=== PATIENT | male | born 1955 | race Hispanic/Latino ===

== ENCOUNTER → 2017-10-13 | Outpatient (CLI) | payer BC | LOC: SLEEP 19:39 | PROVIDERS: ATTEND Family Medicine | DX: G47.30 Sleep apnea, unspecified (principal) | CPT/HCPCS: 95811 ==

== ENCOUNTER 2020-05-14 06:17 | Observation (INO) | payer BC, OTHER ==
[2020-05-11 12:55] LABS: BASOPHILS # (AUTO) 0.1 (0.0-0.1); BASOPHILS % 0.6 % (0.0-1.0); EOSINOPHILS # (AUTO) 0.1 (0.0-0.4); EOSINOPHILS % 1.4 % (0.0-6.0); HEMATOCRIT 39.7 % (38.2-49.6); LYMPHOCYTES # (AUTO) 2.4 (1.0-3.2); LYMPHOCYTES % 30.8 % (18.0-39.1); MEAN CORPUSCULAR HEMOGLOBIN 31.5 pg (28-32); MEAN CORPUSCULAR HGB CONC 35.3 g/dL (31-35); MEAN CORPUSCULAR VOLUME 89.2 fL (81-99); MONOCYTES # (AUTO) 0.6 (0.2-0.8); MONOCYTES % 7.1 % (4.4-11.3); NEUTROPHILS # (AUTO) 4.7 (2.1-6.9); NEUTROPHILS % 59.5 % (38.7-80.0); PLATELET COUNT 233 x10e3/uL (140-360); RED BLOOD COUNT 4.45 x10e6/uL (4.3-5.7); RED CELL DISTRIBUTION WIDTH 12.8 % (11.7-14.4)
[2020-05-11 13:14] LABS: INR 0.97; PROTHROMBIN TIME 13.4 seconds (11.9-14.5)
[2020-05-11 13:15] LABS: PARTIAL THROMBOPLASTIN TIME 29.2 seconds (23.8-35.5)
[2020-05-11 13:18] LABS: ALBUMIN 4.5 g/dL (3.5-5.0); ALBUMIN/GLOBULIN RATIO 1.6 (0.8-2.0); ANION GAP 15.5 mmol/L (8-16); CALCIUM 9.5 mg/dL (8.4-10.2); CREATININE, SERUM 1.25 mg/dL (0.72-1.25); POTASSIUM 3.5 mmol/L (3.5-5.1)
--- NOTE | 2020-05-13 14:40 | NUR ---
Pt contacted by phone for interview of scheduled procedure. Review of medical history and current medications. Procedural consent on day of arrival to be completed, pre-op orders, and twice bathing education completed. All questions clarified and or answered where appropriate. pt verbalizes understanding to include day of procedure expectations and practice social distancing. Pt aware to be using provided/ personal mask for COVID-19 mitigation. Pt to bring [place] list [place] [facility] [place]
[2020-05-14] VITALS (11 sets, daily range): BP systolic 112–133; BP diastolic 66–78
[~2020-05-14] VITALS: Ht 170.2 cm; Wt 79.4 kg
[2020-05-14] MEDS ORDERED: OLMESARTAN-HCT1 EAC2 PO (06:59)
[2020-05-14] MEDS ORDERED: AMLODIPINE BESYL5 MG PO (06:59)
[2020-05-14] MEDS ORDERED: ELIQUIS5 M1 PO (06:59)
[2020-05-14] MEDS ORDERED: FENOFIBRATE160 MG PO (06:59)
[2020-05-14] MEDS ORDERED: METOPROLOL SUCC25 MG PO (06:59)
[2020-05-14] MEDS ORDERED: VERAPAMIL HCL 2.5 MG/ML 2 ML VIAL ONE (07:27)
[2020-05-14] MEDS ORDERED: HEPARIN SOD (PORCINE) 1000 UNIT/ML 30ML ONE (07:27)
[2020-05-14] MEDS ORDERED: FENTANYL CITRATE/PF 100MCG/2 ML INJ ONE (07:28)
[2020-05-14] MEDS ORDERED: SODIUM CHLORIDE 0.9% 1000ML 1,000 ML ONE (07:28)
[2020-05-14] MEDS ORDERED: MIDAZOLAM HCL 2 MG/2 ML VIAL ONE (07:28)
[2020-05-14] MEDS ORDERED: IOPAMIDOL 370 MG/ML 200 ML INFUS..BTL INJ ONE (07:28)
[2020-05-14] MEDS ORDERED: LIDOCAINE HCL 2% LOCAL 20 ML VIAL ONE (07:28)
[2020-05-14] MEDS ORDERED: HEPARIN SOD/SOD CHLORIDE 2,000 ML ONE (07:28)
[2020-05-14] MEDS ORDERED: NITROGLYCERIN/D5W 200 MCG/ML 250 ML ONE (07:28)
--- NOTE | 2020-05-14 09:05 | NUR ---
0905A ELECTROMECHANISMS DESIGN DRAFTER RECIEVING NOTE: Procedure type: [facility] Rt Radial Dr Boyce Circ Fic admit telel obsv 115 pos TR band removal Received pt to rm #[id number] Identiferx2. Rport from Safia BILL.Ox4, Back to baseline orientation. Respiration shallow and regular on room air. V/S stable Monitor stable. No gross issues pain pallor pressure or dysrthmia. Son called to D=BSMorio recieved TR band teaching tool and diagram and stent card Dr Boyce spoke with pt and son.Pt back to baseline orientation. Extremeties equal and strong. Pedal pulses PT/DP X4 Cap fill brisk < 3 sec. Prooceedural access Right TR-band site D/I Skin warm and dry integrity appears D/I IV 20g to left hand, presents healthy w/o s/s of infiltration or complaint. Abdomen soft and supple. pt offered toileting, denies need to urinate or defecate. No personal affects with patient. Family remains at bedside. Pt and family verbalizes understanding of POC. telemetry pack ordered Currently w/o complaint of pain or need.Ptential dc/Disposition. ds/rn
[2020-05-14] MEDS ORDERED: CLOPIDOGREL BISULFATE 75 MG TAB ONE (09:09)
[2020-05-14] MEDS ORDERED: ASPIRIN 325 MG TAB ONE (09:10)
[2020-05-14] MEDS: ATORVASTATIN 40 MG TAB PO SCH (10:00)
--- NOTE | 2020-05-14 10:00 | NUR ---
1000a RADIAL Compression removal: Initial Cuff volume 13 cc 10am -3cc Removed No hematoma/bleeding noted with normal neurovascular function. 1015a -5 cc Removed No hematoma/ bleeding noted with normal neurovascular function. 1030cc -5Removed No hematoma/bleeding noted with normal neurovascular function. Air removal completed. Stasis achieved sterile 2x2,Tegaderm, Coban dressing No hematoma, bleeding noted with normal neurovascular function. Wrist splint in place. Pt instructed on POC. Ds/Rn
--- NOTE | 2020-05-14 10:30 | NUR ---
1030a Phoned report to Kurtis Silvestre. Rt Tr band off and secured NO gross issues pain,pallor,pressure or dysrhythmia.Back to baseline Orientation.Tolerated po intake Tele box on and transported via stretcher. Handoff complete with Rn at bedside.Bed brakes on and in low positon,call light at bedside.Reviewed diagram , stent card info with son and pt Son has copies Prescription left on chart for dc nurse to give to pt Pt does need f/o 2wks and needs to call for appt. eliana/kurtis
--- NOTE | 2020-05-14 11:54 | NUR ---
ASSUMED CARE. AAOX4. ACYANOTIC. PATIENT RESTING IN BED WITH HOB ELEVATED. LEFT HAND IV NOTED. IV PATENT AND SALINE LOCKED. PATIENT TOLERATING FLUIDS BY MOUTH. INSTRUCTED NOT TO PLACE PRESSURE TO RIGHT ARM/RIGHT HAND. VERBALIZED UNDERSTANDING. CALL LIGHT IN REACH. SIDE RAILS UP X2. BED LOW AND LOCKED.
--- NOTE | 2020-05-14 19:55 | NUR ---
BEDSIDE SHIFT REPORT RECEIVED FROM DAY RN. PT IS ALERT AND ORIENTED X3. RESPIRATIONS ARE EVEN AND UNLABORED . RT RADIAL PRESSURE DRESSING DRY AND INTACT. TELE ON. BOWEL SOUNDS PRESENT. NO PEDAL EDEMA NOTED. PT VOIDING WITHOUT DIFFICULTY. 20 G SL IN LEFT HAND. PT DENIES PAIN. CALL LIGHT WITHIN REACH. BED LOCKED AND IN LOW POSITION.
[2020-05-15] VITALS: BP 110/75
[2020-05-15 04:00] VITALS: BP 123/72
[2020-05-15] MEDS ORDERED: ATORVASTATIN CA20 MG PO (07:58)
[2020-05-15] MEDS ORDERED: PLAVIX75 MG PO (07:59)
[2020-05-15] MEDS ORDERED: ASPIRIN81 MG PO (07:59)
--- NOTE | 2020-05-15 08:01 | NUR ---
spoke with Dr. Boyce; orders and instructions received for patient's discharge and med reconciliation.
[2020-05-15 08:19] VITALS: BP 123/72
[2020-05-15 08:26] VITALS: BP 138/72
[2020-05-15] MEDS ORDERED: ASPIRIN 81 MG CHEW TAB PO SCH (09:00)
[2020-05-15] MEDS ORDERED: METOPROLOL SUCCINATE 25 MG TAB XL PO SCH (09:00)
[2020-05-15] MEDS ORDERED: CLOPIDOGREL BISULFATE 75 MG TAB PO SCH (09:00)
[2020-05-15] MEDS ORDERED: AMLODIPINE BESYLATE 5 MG TAB PO SCH (09:00)
[2020-05-15] MEDS: ATORVASTATIN 40 MG TAB PO SCH (09:16)
--- NOTE | 2020-05-15 09:20 | Operative Report ---
DATE OF PROCEDURE: 05/14/2020 SURGEON: Maicol Redd MD PROCEDURE: Cardiac catheterization. PROCEDURE INDICATION: Angina pectoris, abnormal stress test. PROCEDURES PERFORMED: 1. Left heart catheterization. 2. Selective coronary angiography. 3. Moderate sedation between 30 and 45 minutes. 4. Left circumflex drug-eluting stent PCI. 5. TR band hemostasis. PROCEDURE COMPLICATIONS: None. ESTIMATED BLOOD LOSS: Less than 15 mL. PROCEDURE SUMMARY: After consent was obtained, the patient was prepped and draped in a sterile fashion. The right radial site was locally infiltrated with 2% lidocaine and access was obtained with 5-Persian Slender sheath. A TIG catheter was used for engagement of left main, right coronary artery, and to cross the aortic valve for hemodynamic measurements. After the following findings were noted, it was decided to proceed with left circumflex drug-eluting stent PCI as will be described below. FINDINGS: 1. LV pressure 127/10 with end-diastolic pressure of 15. 2. Aortic pressure 125/67. 3. No left ventriculogram was performed. 4. Left main with 20% ostial stenosis and moderate calcifications, gives an LAD of large caliber, a ramus intermedius of small caliber with luminal irregularities, and left circumflex of [id number] caliber with 90% angle takeoff and [id number] calcifications. 5. LAD has 40% proximal stenosis. It gives at least four diagonal to small caliber and multiple septal perforators. 6. The ramus intermedius is small in caliber with luminal irregularities. 7. The left circumflex after it gives left atrial branch and additional small and short obtuse marginal has an area of 80% eccentric stenosis. At this level, the vessel seems to be 2 mm in caliber. It gives three additional terminal branches and OM3 and two left posterolateral branches. The OM3 is small in caliber, approximately 1 mm with a focal proximal 80% stenosis. 8. The right coronary artery is dominant. It has moderate calcifications, 30% mid RCA stenosis, it gives an RV branch and a terminal RPDA and RPLV. The RPLV is medium in caliber and gives at least three right posterolateral branches extending to a significant portion of the lateral wall of the LV myocardium. 9. PCI and XB 3.5 no side-holes guide catheter along with GuideLiner 5.5, a run-through wire positioned into the distal OM3 and Resolute 2.0 x 12 Tahir were used for the intervention of the 80% left circumflex stenosis, which was the target lesion. Heparin to maintain an ACT over 250. Aspirin 325 mg and Plavix 600 mg were administered for this procedure. Of note, the run-through wire was used to cross the OM3 and primary stenting with a 2 x 12 Resolute Tahir was performed across 80% stenosis. Pre-procedure LYN flow3, post-procedure, LYN flow 3, 0% residual stenosis across the stented area. Post-procedure, no flow-limiting dissections or perforations. However, the yenny-stent distal to the stent, there was non flow-limiting 20% to 30% area, which was felt possibly related to small non flow-limiting dissection. With the use of GuideLiner reposition of the guide and attempting further advanced second 2 x 8 stent distal to the previously deployed stent was met with inability to cross due to angulation of circumflex vessel size, position of the stent, and calcifications associated to the vessel. It was therefore decided to perform postdilatation of a stent and soft dilatation of the area yenny-stent distal using an NC Quantum 2 x 8 balloon inflated to 6 atmospheres in the yenny-stent distal area and to nominal pressures across the stented area. Final angiography reveals LYN-3 flow, less than 30% residual distal stenosis, no flow-limiting dissections, no perforations. CONCLUSION: Drug-eluting stent PCI of left circumflex. RECOMMENDATIONS: Aspirin 81 mg daily for at least the following three months, Plavix 75 mg daily. Resume Eliquis for atrial fibrillation and anticoagulation. After at least three days postop if no bleeding arises add statin therapy. Followup in the office in 2 weeks. MD ALEAH Chacon/REAL /[id number]
== END 2020-05-15 10:05 | disposition home or self-care (01) ==
LOC: CATH LAB 06:17 → CATH LAB V 09:03 → MED/SURG 11:52
PROVIDERS: ADMIT Internal Medicine Cardiovascular Disease; ATTEND Internal Medicine Cardiovascular Disease
DX: I25.10 Atherosclerotic heart disease of native coronary artery without angina pectoris (principal); R94.39 Abnormal result of other cardiovascular function study; I48.0 Paroxysmal atrial fibrillation; Z01.810 Encounter for preprocedural cardiovascular examination; Z01.812 Encounter for preprocedural laboratory examination; Z11.59 Encounter for screening for other viral diseases; I10 Essential (primary) hypertension; E78.5 Hyperlipidemia, unspecified
CPT/HCPCS: 36415; 80053; 85025; 85610; 85730; 92928; 93005; 93458; C1725; C1769; C1876 ×2; C1887 ×2; G0378 ×2; J1644; J2001; J2250; J3010; J7030; Q9967; U0002 ×2; 99152; 99153